=== PATIENT | male | born 1950 | race Caucasian/White ===

== ENCOUNTER 2022-12-20 17:08 | Emergency (ER) | payer MEDICARE, OTHER ==
[2022-12-20] MEDS ORDERED: Ondansetron ODT 4 MG TAB ONE (17:43)
[2022-12-20] MEDS ORDERED: Sodium Chloride 0.9% 1,000 ML ONE (17:43)
[2022-12-20 18:09] LABS: INR-International Normal Ratio 1.1; Prothrombin Time 14.2 sec (12.0-14.7)
[2022-12-20 18:10] LABS: PTT 27.5 sec (22.9-36.1)
[2022-12-20] MEDS ORDERED: Sodium Chloride 0.9% 2,000 ML ONE (18:20)
[2022-12-20 18:21] LABS: Albumin 3.5 g/dL (3.4-4.8); Anion Gap 17 mmol/L (10-20); BUN (Urea Nitrogen) 14 mg/dL (8.4-25.7); Bilirubin, Total 1.9 mg/dL (0.2-1.2); Calc. Creatinine Clearance 0 mL/min (70-130); Calcium 8.6 mg/dL (7.8-10.44); Carbon Dioxide 20 mmol/L (23-31); Chloride 103 mmol/L (98-107); Estimated GFR 71; Globulin 2.9 g/dL (2.4-3.5); Glucose 102 mg/dL (80-115); Potassium 3.5 mmol/L (3.5-5.1); Protein, Total 6.4 g/dL (5.8-8.1); Sodium 136 mmol/L (136-145)
[2022-12-20 18:22] LABS: ALT (SGPT) 17 U/L (8-55); AST (SGOT) 27 U/L (5-34); Alkaline Phosphatase 106 U/L (40-110); Hemoglobin 13.3 g/dL (14.0-18.0); Lipase 8 U/L (8-78); Magnesium 1.4 mg/dL (1.6-2.6); Mean Corpuscular HGB CONC 32.4 g/dL (32.0-36.0); Mean Corpuscular Hemoglobin 28.3 pg (27.0-31.0); Mean Corpuscular Volume 87.5 fl (78.0-98.0); Mean Platelet Volume 7.2 fL (7.4-10.4); Platelet Count 183 10x3/uL (130-400); RBC Distribution Width 12.8 % (11.5-14.5); Red Blood Cell (RBC) Count 4.69 mill/uL (4.70-6.10); Troponin I Less than 0.010 ng/mL (< 0.028); White Blood Cell (WBC) Count 5.9 10x3/uL (4.8-10.8)
[2022-12-20] MEDS ORDERED: Acetaminophen 325 MG TAB ONE (18:22)
[2022-12-20] MEDS ORDERED: Sodium Chloride 0.9% 100 ML ONE (18:26)
[2022-12-20] MEDS ORDERED: Cefepime 2 GM VIAL ONE (18:26)
[2022-12-20 18:29] LABS: Band 17 % (5-11); Base Excess-Venous 3.4 mmol/L (-2.0 to 3.0); Bicarbonate (HCO3v) 23.1 mmol/L (22.0-28.0); CO2 Tension (PvCO2) 23.3 mmHg (42.0-51.0); Calcium, Ionized 1.08 mmol/L (1.15-1.33); Chloride 104 mmol/L (98-107); Hemoglobin - Calc 15.1 g/dL (14.0-18.0); Lymphocytes 1 % (21-51); MDiff Complete? YES; Manual Diff?? YES; Monocytes 2 % (0-10); Neutrophil 78 % (42-75); Potassium 3.5 mmol/L (3.5-5.1); Reactive Lymphocytes 2 % (0-10); Sodium 139 mmol/L (138-145); T. Carbon Dioxide 23.8 mmol/L (22.0-28.0); vO2 Saturation-calc 99.9 % (60.0-85.0)
[2022-12-20 18:30] LABS: Platelet Adequacy Comment Appears Adequate
[2022-12-20] MEDS ORDERED: Magnesium 2 GM/50 ML BAG (IN WATER) ONE (18:42)
[2022-12-20 18:46] LABS: Bilirubin Negative (Negative); Blood, Urine Trace (Negative); Glucose, Urine (Dipstick) Negative (Negative); Ketone, Urine Negative (Negative); Leukocyte Moderate (Negative); Nitrite Negative (Negative); Protein, Urine (Dipstick) Negative (Neg-Trace); Specific Gravity, Urine 1.015 (1.005-1.030)
[2022-12-20 18:52] LABS: Clarity Cloudy (Clear)
[2022-12-20 18:54] LABS: SARS-CoV-2 NAA Rapid Test Not Detected (NotDetected)
[2022-12-20 18:56] LABS: Bacteria/HPF Rare-Few HPF (None Seen); CAUTI Indications for Culture Acute Hematuria; RBC/HPF 0-3 HPF (0-3); Squamous Epithelial 0-3 HPF (0-3); WBC/HPF Greater Than 50 HPF (0-3)
[2022-12-20 18:57] LABS: Urine Culture Reflex Yes Yes
[2022-12-20] MEDS ORDERED: Vancomycin 1 GM VIAL ONE (19:52)
[2022-12-20] MEDS ORDERED: Sodium Chloride 0.9% 250 ML 500 ML ONE (19:52)
== END 2022-12-20 20:31 | disposition short-term general hospital (02) ==
LOC: MADERS 17:08
DX: A41.9 Sepsis, unspecified organism (principal); G93.0 Cerebral cysts
CPT/HCPCS: 70450; 71045; 81001; 82330; 82435; 82803; 83605; 83690; 83735; 84132; 84295; 84484; 85014; 85610; 85730; 87040; 87077; 87086; 87149 ×2; 87186; 87804 ×2; 93005; 96361; 96365; 96367; 96368; 99285; U0002; 80053; 84443; 85025; 94760; J0692; J3370; J3475; J3490; J7050; Q0162

== ENCOUNTER 2023-05-03 07:11 | Emergency (ER) | payer MEDICARE, OTHER | END 2023-05-03 08:24 | disposition home or self-care (01) | LOC: MADERS 07:11 | DX: S93.401A Sprain of unspecified ligament of right ankle, initial encounter (principal); X58.XXXA Exposure to other specified factors, initial encounter ==

== ENCOUNTER 2024-12-16 09:36 | Emergency (ER) | payer MEDICARE, OTHER ==
[2024-12-16 10:10] LABS: Glucose, Urine (Dipstick) Negative (Negative); Leukocyte Negative (Negative); Protein, Urine (Dipstick) Negative (Neg-Trace); Specific Gravity, Urine 1.015 (1.005-1.030)
[2024-12-16 10:18] LABS: Bacteria/HPF Rare-Few HPF (None Seen); CAUTI Indications for Culture Pelvic or flank pain; RBC/HPF None Seen HPF (0-3); Urine Culture Reflex No No; WBC/HPF 0-3 HPF (0-3)
[2024-12-16 10:33] LABS: #Basophils 0.1 thou/uL (0.0-0.2); #Eosinophils 0.1 thou/uL (0.0-0.7); #Lymphocytes 1.0 thou/uL (1.20-3.40); #Monocytes 0.4 thou/uL (0.11-0.59); #Neutrophils 4.9 thou/uL (1.40-6.50); %Basophils 1.0 % (0.0-1.0); %Eosinophils 0.8 % (0.0-10.0); %Lymphocytes 16.0 % (21.0-51.0); %Monocytes 6.1 % (0.0-10.0); %Neutrophils 76.1 % (42.0-75.0); Hematocrit 50.8 % (42.0-52.0); Hemoglobin 16.5 g/dL (14.0-18.0); Mean Corpuscular Hemoglobin 27.9 pg (27.0-31.0); Mean Corpuscular Volume 85.7 fl (78.0-98.0); Platelet Count 246 10x3/uL (130-400); Red Blood Cell (RBC) Count 5.93 mill/uL (4.70-6.10); White Blood Cell (WBC) Count 6.4 10x3/uL (4.8-10.8)
[2024-12-16 10:52] LABS: ALT (SGPT) 14 U/L (Less than 45); AST (SGOT) 26 U/L (11-34); Albumin 4.4 g/dL (3.1-4.5); Alkaline Phosphatase 56 U/L (40-110); Anion Gap 14 mmol/L (10-20); BUN (Urea Nitrogen) 15 mg/dL (8.4-25.7); Bilirubin, Total 0.9 mg/dL (0.3-1.2); Calc. Creatinine Clearance 0 mL/min (70-130); Calcium 9.6 mg/dL (7.8-10.44); Carbon Dioxide 27 mmol/L (23-31); Chloride 102 mmol/L (98-107); Globulin 2.8 g/dL (2.4-3.5); Glucose 110 mg/dL (83-110); Potassium 4.3 mmol/L (3.5-5.1); Sodium 139 mmol/L (136-145)
== END 2024-12-16 11:17 | disposition home or self-care (01) ==
LOC: MADERS 09:36
DX: N50.811 Right testicular pain (principal)
CPT/HCPCS: 36415; 80053; 81001; 83605; 85025; 99284